=== PATIENT | female | born 1995 | race Caucasian/White ===

== ENCOUNTER 2016-12-13 23:45 | Emergency (ER) | payer OTHER ==
--- NOTE | ~2016-12-13 | CR72 ---
[facility] A Service of [facility] RADIOLOGY TEXT RESULTS PATIENT: VALENTIN RIOS LOCATION: [facility] : 95 UNIT #: [id number] AGE: [address]: Remy Martinez MD SEX: F ORDER DR: [id number] [facility] [address] [facility]. [place], [place] [address] [id number] MR#: [id number] Acc #: [id number] NAME: VALENTIN RIOS : 1995 SEX: F STUDY DATE/TIME: 12/13/2016 23:31 UNIT: [facility] ROOM: STUDY DESCRIPTION: CR Chest Single View Portable Attending Physician: Remy Martinez M.D. Ordering Physician: Remy Martinez M.D. Primary Care Physician: Primary Care Physician No MEDICAL IMAGING REPORT This report is preliminary unless electronic signature is present EXAM Portable chest INDICATIONS Chest pain all over since last night TECHNIQUE Portable view of the chest was obtained COMPARISON 08/02/2014 FINDINGS The heart size and vascularity heart size and the lungs are clear. The bones are unremarkable. IMPRESSION No active disease. Dictated by... Clemente Ferguson M.D. THIS IS AN ELECTRONICALLY VERIFIED REPORT Clemente Ferguson M.D. at 12/14/2016 9:55 PM FEL/to TD: 12/14/2016 17:48 JOB #: [id number] MEDICAL IMAGING REPORT Page 1 of 1 COPY
--- NOTE | ~2016-12-13 | EKG ---
PATIENT: VALENTIN RIOS UNIT #: [id number] Ventricular Rate: 108 BPM Atrial Rate: 108 BPM P-R Interval: 134 ms QRS Duration: 74 ms Q-T Interval: 326 ms QTC Calculation(Bezet): 436 ms P [place]: 70 degrees Calculated R [place]: 53 degrees Calculated T [place]: 57 degrees Diagnosis Line: Sinus tachycardia Diagnosis Line: Possible Left atrial enlargement Diagnosis Line: Borderline ECG Diagnosis Line: No previous ECGs available Diagnosis Line: Confirmed by BIRDIE BURNS MD ([id number]) on Diagnosis Line: 12/14/2016 3:52:08 PM INTERPRETING MD: TIFFANY
[~2016-12-13 23:45] MED LIST: ALBUTEROL17 GM INH; BACTRIM DS TABL1 TA2 PO; BACTRIM DS TABL1 TAB PO; CLEOCIN PO; IBUPROFEN800 MG PO; LEVAQUIN PO; MIRENA; NO MEDICATIONS; NORCO1 TAB 10/3 PO; PHENERGAN25 M1 PO; PREDNISONE PO; PYRIDIUM100 MG PO; TESSALON PERLE100 M1 PO; ZOFRAN ODT4 MG/UDTAB PO; ZOFRAN PO
== END 2016-12-14 00:35 | disposition home or self-care (01) ==
LOC: CED 23:45
DX: S20.211A Contusion of right front wall of thorax, initial encounter (principal); F17.200 Nicotine dependence, unspecified, uncomplicated; W50.1XXA Accidental kick by another person, initial encounter; Y92.9 Unspecified place or not applicable; G40.909 Epilepsy, unspecified, not intractable, without status epilepticus
CPT/HCPCS: 71010; 84703; 93005; 99283

== ENCOUNTER 2017-01-05 14:00 | Emergency (ER) | payer OTHER | END 2017-01-05 14:01 | disposition home or self-care (01) | LOC: SED 14:00 | DX: S01.81XD Laceration without foreign body of other part of head, subsequent encounter (principal); F17.210 Nicotine dependence, cigarettes, uncomplicated; Z23 Encounter for immunization; W45.8XXD Other foreign body or object entering through skin, subsequent encounter | CPT/HCPCS: 90471; 90715; 99282 ==